=== PATIENT | female | born 1980 | race Asian ===

== ENCOUNTER 2017-07-17 06:58 | Emergency (ER) | payer MEDICAID ==
[~2017-07-17] VITALS: Ht 170.2 cm; Wt 56.7 kg
[2017-07-17 07:00] VITALS: BP_SYST 114
--- NOTE | 2017-07-17 07:00 | NUR ---
BROUGHT BACK TO BED #3 AND TRIAGED. REPORT GIVEN TO KALYAN
--- NOTE | 2017-07-17 07:31 | NUR ---
Pt complains of lower back pain for the past month, this morning pt states pain was severe and radiated to R buttock and leg. Pt denies n/v or fever. Pt ambulated into the ER with no noted difficulty. No other injuries/complaints per pt or noted.
--- NOTE | 2017-07-17 07:42 | NUR ---
JASMINE Lee at bedside examining patient.
[2017-07-17] MEDS ORDERED: KETOROLAC TROMETHAMINE 30 MG VIAL IM ONE (07:45)
[2017-07-17] MEDS ORDERED: CYCLOBENZAPRINE HCL 10 MG TABLET (FLEXERIL) PO ONE (07:45)
--- NOTE | 2017-07-17 08:05 | NUR ---
Pain medication was given, pt tolerated it well. No noted adverse reaction, will continue to monitor.
[2017-07-17] MEDS ORDERED: GABAPENTIN 100 MG CAPSULE PO ONE (08:30)
--- NOTE | 2017-07-17 08:35 | NUR ---
Dr Colindres was in explaining results and gave more medication. Pt tolerated well and no noted adverse reaction
[2017-07-17 08:40] VITALS: BP_SYST 110
--- NOTE | 2017-07-17 08:40 | NUR ---
Patient given written and verbal discharge instructions and verbalizes understanding. ER MD discussed with patient the results and treatment provided. Patient in stable condition. ID arm band removed. Rx of motrin, flexeril and gabapentin given. Patient educated on pain management and to follow up with PMD. Pain Scale 2. Opportunity for questions provided and answered.
== END 2017-07-17 08:40 | disposition home or self-care (01) ==
LOC: SED 06:58
DX: S39.012A Strain of muscle, fascia and tendon of lower back, initial encounter (principal); X50.0XXA Overexertion from strenuous movement or load, initial encounter; Y93.89 Activity, other specified; Y92.89 Other specified places as the place of occurrence of the external cause; Y99.8 Other external cause status
CPT/HCPCS: 96372; 99283; J1885

== ENCOUNTER 2017-09-04 08:18 | Emergency (ER) | payer MEDICAID ==
[~2017-09-04] VITALS: Ht 170.2 cm; Wt 59.0 kg
[2017-09-04 08:20] VITALS: BP_SYST 91
--- NOTE | 2017-09-04 08:20 | NUR ---
Patient triaged and placed in waiting room. VSS and patient appears in no acute distress at this time. Accompanied by SPOUSE, awaiting available bed, and MD notified of need for MSE.
--- NOTE | 2017-09-04 08:55 | NUR ---
PT WALKING AROUND ER WAITING ROOM WITHOUT DIFFICULTY
--- NOTE | 2017-09-04 09:01 | NUR ---
PT LEFT WITHOUT BEING SEEN
--- NOTE | 2017-09-04 09:01 | NUR ---
PT STATES SHE IS UNWILLING TO WAIT ANY LONGER AND WANTS TO LEAVE TO ANOTHER HOSPITAL. I EXPLAINED TO PT THAT SHE WILL BE CALLED TO BACK SOON AND WILL BE SEEN BY AN MD, PT REFUSING TO WAIT.
== END 2017-09-04 09:01 | disposition left against medical advice (07) ==
LOC: SED 08:18
DX: M54.9 Dorsalgia, unspecified (principal); Z53.21 Procedure and treatment not carried out due to patient leaving prior to being seen by health care provider

== ENCOUNTER 2019-06-23 17:38 | Emergency (ER) | payer OTHER, MEDICAID ==
[~2019-06-23] VITALS: Ht 170.2 cm; Wt 47.6 kg
[2019-06-23 17:46] VITALS: BP_SYST 123
--- NOTE | 2019-06-23 21:34 | NUR ---
Patient left without being seen. No further treatment provided. ER MD aware
--- NOTE | 2019-06-23 21:34 | NUR ---
Called in x 3, no answer
== END 2019-06-23 21:34 | disposition left against medical advice (07) ==
LOC: SED 17:38
DX: M54.2 Cervicalgia (principal); Z53.21 Procedure and treatment not carried out due to patient leaving prior to being seen by health care provider